=== PATIENT | female | born 1950 | race Caucasian/White ===

== ENCOUNTER → 2017-08-12 | Outpatient (CLI) | payer MEDICARE, BC ==
[2014-11-28 15:09] VITALS: BP 117/89
[~2017-08-12] MED LIST: CEPHALEXIN500 M1 PO; LANOLIN OIL1 OIL
[2017-08-12 08:38] LABS: HEMOGLOBIN 13.4 g/dL (12.5-16.0); MEAN CELL VOLUME 88 fl (78-100); MEAN CORPUSCULAR HEMOGLOBIN 29 pg (27-31); MEAN CORPUSCULAR HGB CONC 33 g/dL (33-37); MEAN PLATELET VOLUME 10.2 fl (7.4-10.4); PLATELET COUNT 202 K/mm3 (130-400); RED BLOOD COUNT 4.68 M/mm3 (4.10-5.30); RED CELL DISTRIBUTION WIDTH 13.4 % (11.5-14.5); WHITE BLOOD COUNT 3.1 K/mm3 (4.8-10.8)
[2017-08-12 09:04] LABS: ALBUMIN 3.8 g/dL (3.5-5.0); BUN/CREATININE RATIO 25.5 (6.0-26.0); CALCIUM 8.8 mg/dL (8.4-10.2); POTASSIUM 4.1 mmol/L (3.6-5.0); TOTAL BILIRUBIN 0.4 mg/dL (0.2-1.3); TOTAL PROTEIN 6.7 g/dL (6.3-8.2)
[2017-08-12 10:29] LABS: LYMPHOCYTE 36 % (20-51); MONOCYTE 4 % (3-10); NEUTROPHILS 58 % (42-75)
== END ==
LOC: LAB 08:18
PROVIDERS: Internal Medicine Medical Oncology
DX: D05.12 Intraductal carcinoma in situ of left breast (principal); Z17.0 Estrogen receptor positive status [ER+]

== ENCOUNTER 2020-01-29 14:59 | Emergency (ER) | payer MEDICARE, BC ==
[2020-01-29] MEDS ORDERED: LOW DOSE ASPIRI81 M1 PO (15:42)
[2020-01-29 17:05] VITALS: BP 135/62
== END 2020-01-29 17:10 | disposition home or self-care (01) ==
LOC: ED 14:59
DX: S61.012A Laceration without foreign body of left thumb without damage to nail, initial encounter (principal); Z23 Encounter for immunization; Z85.3 Personal history of malignant neoplasm of breast; Z79.82 Long term (current) use of aspirin; Z79.810 Long term (current) use of selective estrogen receptor modulators (SERMs); W26.0XXA Contact with knife, initial encounter
CPT/HCPCS: 90714

== ENCOUNTER 2020-07-11 16:10 | Emergency (ER) | payer MEDICARE, BC ==
[~2020-07-11 16:10] MED LIST changes: +LOW DOSE ASPIRI81 M1 PO
[2020-07-11] MEDS ORDERED: TAMOXIFEN CITRA20 MG PO (16:23)
[2020-07-11 16:36] LABS: BASO # 0.06 (0.02-0.10); EOS # 0.06 (0.04-0.40); EOS % 1.2 % (1.0-5.0); HEMATOCRIT 40.8 % (37.0-47.0); HEMOGLOBIN 13.5 g/dL (12.5-16.0); LYMPH# 1.68 (1.50-4.00); MEAN CELL VOLUME 87 fl (78-100); MEAN CORPUSCULAR HEMOGLOBIN 29 pg (27-31); MEAN CORPUSCULAR HGB CONC 33 g/dL (33-37); MEAN PLATELET VOLUME 10.2 fl (7.4-10.4); MONO # 0.37 (0.20-0.80); PLATELET COUNT 174 K/mm3 (130-400); RED BLOOD COUNT 4.69 M/mm3 (4.10-5.30); RED CELL DISTRIBUTION WIDTH 12.9 % (11.5-14.5); WHITE BLOOD COUNT 5.1 K/mm3 (4.8-10.8)
[2020-07-11 16:50] LABS: POTASSIUM 3.9 mmol/L (3.5-5.1); SODIUM 140 mmol/L (136-145)
[2020-07-11 16:51] LABS: CALCIUM 9.2 mg/dL (8.3-10.5)
[2020-07-11 16:52] LABS: GLUCOSE 105 mg/dL (65-105); TOTAL PROTEIN 6.7 g/dL (6.2-8.1)
[2020-07-11 16:53] LABS: CARBON DIOXIDE 24 mmol/L (23-31)
[2020-07-11 16:54] LABS: TOTAL BILIRUBIN 0.4 mg/dL (0.2-1.2)
[2020-07-11 16:57] LABS: PARTIAL THROMBOPLASTIN TIME 20.6 SECONDS (21.0-32.0); PROTHROMBIN TIME 9.3 SECONDS (9.0-12.0)
[2020-07-11 16:58] LABS: AST-SGOT 21 U/L (5-34)
[2020-07-11 16:59] LABS: ALT/SGPT 17 U/L (0-55)
[2020-07-11 17:07] LABS: D-DIMER 0.29 mg/L FEU (0.15-0.50); TROPONIN-I < 0.03 ng/mL (<0.030)
[2020-07-11 20:09] VITALS: BP 162/85
== END 2020-07-11 20:16 | disposition home or self-care (01) ==
LOC: ED 16:10
PROVIDERS: Nurse Practitioner
DX: R07.89 Other chest pain (principal); Z91.040 Latex allergy status; Z79.82 Long term (current) use of aspirin

== ENCOUNTER → 2023-08-28 | Outpatient (CLI) | payer MEDICARE, BC ==
[~2023-08-28] MED LIST changes: +TAMOXIFEN CITRA20 MG PO
== END ==
LOC: MAMMO 15:25
DX: Z12.31 Encounter for screening mammogram for malignant neoplasm of breast (principal); R92.0 Mammographic microcalcification found on diagnostic imaging of breast; D05.12 Intraductal carcinoma in situ of left breast

== ENCOUNTER → 2023-09-10 | Outpatient (CLI) | payer MEDICARE, BC | LOC: MAMMO 07:28 | DX: D05.12 Intraductal carcinoma in situ of left breast (principal); Z98.890 Other specified postprocedural states ==